=== PATIENT | female | born 1990 | race Caucasian/White ===

== ENCOUNTER 2020-12-01 08:34 | Inpatient (IN) ==
--- NOTE | 2020-11-20 10:05 | Anesthesiology Consultation ---
Date of Service November 20, 2020 Assessment & Plan (1) Encounter for pre-operative examination: COVID Status: As of 11/20 nurse assessment, patient denies travel to endemic area, known exposure/sick contacts, or symptoms of COVID19. Preoperative COVID19 testing to [place] completed on 11[place]27 at [facility] Chart Review Chart Review: Patient NOT seen in Pre Admission Testing and energy projects lead initiated History Surgery Operation Date: 12/01/20 10:40 Proposed Procedures p Section with Bilateral Tubal Ligation - Domenica Whitaker MD Height/Weight Height: 5 ft 6 in Weight: 104.78 kg Allergies Allergy/AdvReac Type Severity Reaction Status Date / Time No Known Allergies Allergy Verified 11/30/20 08:59 Medications Home Medications Medication Instructions Recorded Confirmed Last Taken prenat.vits,selina,ybi-ahcp-lgexk 1 tab PO DAILY 07/12/20 12/01/20 11/30/20 07:00 Past Medical History Medical History History of abnormal cervical Papanicolaou smear 02/24/12 Mild cervical dysplasia, histologically confirmed RhD negative Spontaneous (~2018) Past Family History Family History Grandfather (Paternal) Diabetes Heart disease Aunt Breast cancer paternal Other No family history of adverse response to anesthesia Past Surgical History Surgical History H/O colposcopy with cervical biopsy 06/11/12 History of section x2 Social History Smoking Status: Never smoker Do You Dip or Chew Tobacco: No Hx Alcohol Use: No Hx Substance Use: No Physical Exam Vital Signs Last Vital Signs Temp 36.7 C 12/01/20 08:44 Pulse 77 12/01/20 08:44 Resp 20 12/01/20 08:44 BP 118/81 12/01/20 08:44 Testing Laboratory Results 12/01/20 09:09 Blood Type A Negative 12/01/20 09:05 Antibody Screen NEGATIVE 12/01/20 09:05
[~2020-12-01 08:34] MED LIST: CITRIC ACID/SODIUM CITRATE 15 ML UDC PO SCH; LACTATED RINGER'S 1,000 ML IV SCH; ceFAZolin 3,000 MG in DEXTROSE 5% 50 ML IV SCH
[2020-12-01 09:17] LABS: Basophils # (auto) 0.01 K/uL (0-0.2); Basophils % (auto) 0.1 %; Eosinophils # (auto) 0.03 K/uL (0-0.5); Eosinophils % (auto) 0.4 %; Hematocrit (blood only) 31.9 % (37-47); Hemoglobin 10.4 g/dL (12.0-16.0); Immature Granulocytes # (auto) 0.01 K/uL (0.00-0.02); Immature Granulocytes % (auto) 0.1 %; Lymphocytes # (auto) 1.44 K/uL (1.2-3.4); Lymphocytes % (auto) 19.8 %; Mean Corpuscular Hemoglobin 27.6 pg (25-34); Mean Corpuscular Hgb Conc 32.6 g/dL (32-36); Mean Corpuscular Volume 84.6 fL (80-100); Mean Platelet Volume 10.3 fL (7.4-10.4); Monocytes # (auto) 0.64 K/uL (0.11-0.59); Monocytes % (auto) 8.8 %; Neutrophils # (auto) 5.15 K/uL (1.4-6.5); Neutrophils % (auto) 70.8 %; Platelet Count 287 K/uL (130-400); RDW Coefficient of Variation 15.4 % (11.5-14.5); RDW Standard Deviation 47.5 fL (36.4-46.3); Red Blood Count 3.77 M/uL (4.2-5.4); White Blood Count 7.28 K/uL (4.8-10.8)
--- NOTE | 2020-12-01 10:27 | History & Physical Bridge Note ---
Date of Service December 01, 2020 History & Physical Bridge Note I have examined the patient, reviewed the History & Physical and in the interval since the performance of the History & Physical I have noted the following changes of clinical significance: no changes noted
[2020-12-01] MEDS ORDERED: SODIUM CHLORIDE 0.9% INJ 10 ML VIAL ONE (12:12)
[2020-12-01] MEDS ORDERED: ONDANSETRON INJ 2 MG/ML 2 ML VIAL ONE (12:12)
[2020-12-01] MEDS ORDERED: MoRPHine SULFATE PF 1 MG/ML 10 ML AMP/VIAL ONE (12:12)
[2020-12-01] MEDS ORDERED: OXYTOCIN 10 UNITS/ML VIAL ONE (12:12)
[2020-12-01] MEDS ORDERED: fentaNYL citrate 100 MCG/2 ML VIAL ONE (12:12)
[2020-12-01] MEDS ORDERED: GLYCOPYRROLATE 0.2 MG/ML VIAL ONE (14:07)
[2020-12-01] MEDS ORDERED: ePHEDrine sulfate 50 MG/ML AMP ONE (14:08)
[2020-12-01] MEDS ORDERED: KETOROLAC 30 MG/ML VIAL ONE (14:31)
--- NOTE | 2020-12-01 15:02 | Operative Report ---
PG Post Operative Report Pre & Post Diagnosis Operation Date: 12/01/20 10:40 Pre-Op Diagnosis: Prior [place] Section;Declines ;Desires Sterilization Post-Op Diagnosis: Same; Delivery of a live male child @ 1422 (Main OR 3) I identified the patient and participated in the time-out.: Yes Procedure Operation Date: 12/01/20 10:40 Actual Procedures Low Transverse Section with Bilateral Tubal Ligation - Domenica Whitaker MD Surgeon Domenica Whitaker MD Cooper Apprentice Keyla Estimated Blood Loss 500 Findings Consistent with Post-Op Diagnosis True knot in cord Specimens Placenta, Cord blood Anesthesia Type Spinal Complications none Disposition Accompanied Patient To Recovery: Yes Disposition: L&D Description of Procedure The patient was brought to the operating room and placed on the table in the supine position with a leftward tilt, then prepped and draped in standard sterile fashion. A hard time out was taken prior to proceeding. A pfannensteil incision was created sharply and carried down to the fascia using bovie electrocautery. The fascia was nicked and then extended using garcia scissors. The edges of the fascia were grasped with Saturnino clamps and elevated, then sharply and bluntly dissected off the underlying rectus. The midline of the rectus was identified and bluntly . The peritoneum was bluntly entered, and this entry was extended using pressure from the surgeon's hands. The bladder retractor was placed and the lower uterine segment was examined and found to be well developed. A bladder flap was created and the retractor was r eplaced behind this flap to protect the bladder. A transverse lower uterine incision was then created, with final entry to the uterine cavity made in a blunt manner with the surgeon's finger. Clear amniotic fluid was encountered. The head was elevated to the incision and delivered using mild fundal pressure. A true knot was noted in the cord. The cord was doubly clamped and cut, then the vigorous infant was taken to the warmer for chocolate molder care. The placenta was manually extracted, then the uterus was gently exteriorized from the maternal abdomen. The cavity was cleared of clot and debris using a dry lap sponge. The angles of the incision were identified with allis clamps, and the hysterotomy was then repaired in running locked fashion using 0-vicryl suture, followed by a second imbricating layer. The tubes and ovaries were examined and found to be normal bilaterally. Verbal consent for tubal sterilization was confirmed, and then tubal ligation was performed on the L and then the R tube via Harika method. The tube was elevated with a Olga, a knuckle of tube was isolated via double suture-ligation, then the knuckle was excised sharply with an and the stumps were checked for hemostasis. The posterior gutter was irrigated and cleared of clot and debris. The uterus was then gently re-internalized to the abdomen. Lateral gutters were cleared of clot and debris using a damp lap sponge, the tubal stumps were examined to ensure the sutures remained in place and hemostatic, and a final exam of the hysterotomy revealed good hemostasis. The rectus muscles were allowed to reapproximate naturally. The angle of the fascia was grasped with a Saturnino clamp and the fascia was then repaired in running non-locked fashion with 1- vicryl suture. At the completion of repair, the fascia was examined and found to be free of any defect. The subcutaneous tissue was copiously irrigated and then reapproximated using 3-0 chromic. The skin was then closed using 4-0 monocryl in a running subcuticular fashion and a dermabond dressing was applied. The dan was noted to be draining clear yellow urine as the patient was transferred back to her recovery room. I attest to the content of the Intraoperative Record and any orders documented therein. Any exceptions are noted below.
[2020-12-01] MEDS ORDERED: NALOXONE HCL 0.08 MG in SYRINGE 1.8 ML IV PRN (15:59)
[2020-12-01] MEDS ORDERED: NALOXONE HCL 0.4 MG/1 ML VIAL/CARP IV PRN (15:59)
[2020-12-01] MEDS ORDERED: MoRPHine SULFATE PF 1 MG/ML 10 ML AMP/VIAL INT SPINAL ONE (15:59)
[2020-12-01] MEDS ORDERED: HYDROmorphone INJ 0.5 MG/0.5 ML SYR IV PRN (15:59)
[2020-12-01] MEDS ORDERED: LACTATED RINGER'S 500 ML IV PRN (15:59)
[2020-12-01] MEDS ORDERED: PROMETHAZINE HCL 25 MG in SODIUM CHLORIDE 0.9% 50 ML IV PRN (15:59)
[2020-12-01] MEDS ORDERED: diphenhydrAMINE 50 MG/ML VIAL IV PRN (15:59)
[2020-12-01] MEDS ORDERED: ONDANSETRON INJ 2 MG/ML 2 ML VIAL IV PRN (15:59)
[2020-12-01] MEDS ORDERED: ACETAMINOPHEN 1000 MG/100 ML IV IV PRN (15:59)
[2020-12-01] MEDS ORDERED: KETOROLAC 30 MG/ML VIAL IV PRN (15:59)
[2020-12-01] MEDS ORDERED: ePHEDrine sulfate 50 MG/ML AMP IV PRN (15:59)
[2020-12-01] MEDS ORDERED: NALOXONE HCL 1 MG in SODIUM CHLORIDE 0.9% 1000ML 1,000 ML IV PRN (15:59)
--- NOTE | 2020-12-01 15:59 | Anesthesiology Progress Note ---
Date of Service December 01, 2020 Anesthesia Post Procedure Vital Signs Vital Signs: Temp Pulse Resp BP Pulse Ox 12/01/20 15:55 72 110/63 97 12/01/20 15:53 66 114/63 12/01/20 15:50 70 97 12/01/20 15:47 77 94 12/01/20 15:45 82 97 12/01/20 15:40 61 96 12/01/20 15:36 101 H 89/48 L 12/01/20 15:35 67 93 12/01/20 15:30 67 96 12/01/20 15:29 77 94 12/01/20 15:25 68 133/76 98 12/01/20 15:20 58 L 97 12/01/20 15:15 67 126/66 98 12/01/20 11:21 36.7 C 63 20 129/76 12/01/20 08:44 36.7 C 77 20 118/81 Transfer of Care Handoff Completed per policy Notes Mental Status: alert / awake / arousable and participated in evaluation Nausea / Vomiting: adequately controlled Pain: adequately controlled Airway Patency, RR, SpO2: stable & adequate BP & HR: stable & adequate Hydration State: stable & adequate Neuraxial Anesthesia: was administered and sensory block is resolving Anesthetic Complications: no major complications apparent and Pt Satisfied with anesthetic care
[2020-12-01] MEDS ORDERED: NO NARCOTICS OR SEDATIVES SCH (16:00)
[2020-12-01] MEDS ORDERED: SODIUM CHLORIDE 0.9% 1000ML 1,000 ML IV SCH (16:00)
[2020-12-01] MEDS ORDERED: HYDROCORTISONE ACETATE 25 MG SUPP PR PRN (16:56)
[2020-12-01] MEDS ORDERED: MAGNESIUM HYDROXIDE SUSP 30 ML UDC PO PRN (16:56)
[2020-12-01] MEDS ORDERED: SENNA 8.6 MG TAB PO PRN (16:56)
[2020-12-01] MEDS ORDERED: BENZOCAINE 20% AER SPR 82.5 GM CAN EXT PRN (16:56)
[2020-12-01] MEDS ORDERED: LACTATED RINGER'S 1,000 ML IV SCH (16:56)
[2020-12-01] MEDS ORDERED: SUPERCREAM 0.870% 15 GM JAR EXT PRN (16:56)
[2020-12-01] MEDS ORDERED: DIPHTHERIA/TETANUS/PERTUSSIS 0.5 ML SYR/VIAL IM ONE (16:56)
[2020-12-01] MEDS ORDERED: OXYTOCIN 20 UNITS in LACTATED RINGER'S 1,000 ML IV SCH (17:15)
[2020-12-01] MEDS: SIMETHICONE 80 MG CHEW PO SCH ×2 (19:50→20:37)
[2020-12-01] MEDS: DOCUSATE SODIUM 100 MG CAP PO SCH (20:37)
[2020-12-01] MEDS ORDERED: LACTATED RINGER'S 500 ML IV ONE (23:09)
--- NOTE | 2020-12-02 06:23 | Obstetrical Progress Note ---
Date of Service <Dharmesh Alfaro MD - Last Filed: 12/02/20 07:26> December 02, 2020 Assessment & Plan <Dharmesh Alfaro MD - Last Filed: 12/02/20 07:26> (1) state: 30 y/o s/p rLTCS w/ BTL at 39w2d and is POD1. No complications during C/S. A neg. RI. GBS neg. Baby os O neg. Rhogam not indicated . - vitals reviewed at 0630 and are stable - Hb 10.4->9.5. Stable. Will monitor clinically. - . pain controlled. - plan for today: ambulate, remove dan, advance diet, and transition to PO pain medications - continue routine care Subjective <Dharmesh Alfaro MD - Last Filed: 12/02/20 07:26> Voiding: dan catheter in place Passing Gas:: Yes (no bm) Diet Tolerance:: clear liquids (tolerating crackers) Lochia:: Small Feeding Type:: breast feeding (no issues. ) Current Pain Level(1-10): 0 Doing well. No pain at the moment. Review of Systems Denies fever, chills, sweats Denies shortness of breath, chest pain, palpitations. Denies breast pain. Denies dysuria. Denies headache or changes in vision. Denies nausea/vomiting. Denies numbness, tingling, weakness. Denies calf pain. No mood problems. Physical Exam <Dharmesh Alfaro MD - Last Filed: 12/02/20 07:26> General: Alert, oriented. No acute distress. Cardiac: Regular rate and rhythm, no murmurs/rubs/gallops. Respiratory: Clear to auscultation bilaterally, no wheezes/rales/rhonchi. No respiratory distress. Abdomen: , soft, very mild appropriately tender. LTCS incision is nonerythematous and not draining. Dermabond appears slightly wet. Uterus: See attending note for fundus exam. Lower Extremities: No lower extremity edema or swelling. No deep calf pain. Shira's negative bilaterally. Results & Data ([facility]) <Dharmesh Alfaro MD - Last Filed: 12/02/20 07:26> Vital Signs (Past 12 Hours) Vital Signs Temp Pulse Resp BP Pulse Ox 12/02/20 05:30 16 97 02/27/21 04:30 16 98 12/02/20 03:35 36.7 C 77 16 137/87 97 12/02/20 02:30 16 97 12/02/20 01:30 16 97 12/02/20 00:00 36.5 C 61 17 122/80 99 12/01/20 23:30 16 98 12/01/20 22:30 18 98 12/01/20 21:30 16 98 12/01/20 21:20 36.3 C L 65 16 114/78 98 12/01/20 20:30 18 97 12/01/20 19:30 16 100 12/01/20 18:40 36.6 C 12/01/20 18:30 16 98 12/01/20 18:20 36.4 C L Medications Administered <Jeanine Ramires MD - Last Filed: 12/02/20 07:30> Co-Signing Physician Notes Resident Physician Supervision Note: I interviewed and examined the patient. Discussed with Dr. Alfaro and agree with findings and plan as documented in the note. Any exceptions or clarifications are listed here: POD1 s/p rLTCS/BTL. Doing well, had issues w/ nausea overnight and low uOP, both resolved. Feeling much better. VSS, exam benign, fundus firm 1cm below umbilicus, NT. Incision c/d/i. For dan removal today, routine pp care Documented By: Jeanine Ramires MD
[2020-12-02 06:38] LABS: Basophils # (auto) 0.01 K/uL (0-0.2); Basophils % (auto) 0.1 %; Eosinophils # (auto) 0.01 K/uL (0-0.5); Eosinophils % (auto) 0.1 %; Hematocrit (blood only) 29.7 % (37-47); Hemoglobin 9.5 g/dL (12.0-16.0); Immature Granulocytes # (auto) 0.03 K/uL (0.00-0.02); Immature Granulocytes % (auto) 0.2 %; Lymphocytes # (auto) 1.37 K/uL (1.2-3.4); Lymphocytes % (auto) 11.2 %; Mean Corpuscular Hemoglobin 27.5 pg (25-34); Mean Corpuscular Volume 85.8 fL (80-100); Mean Platelet Volume 10.1 fL (7.4-10.4); Monocytes # (auto) 1.14 K/uL (0.11-0.59); Monocytes % (auto) 9.3 %; Neutrophils # (auto) 9.65 K/uL (1.4-6.5); Neutrophils % (auto) 79.1 %; Platelet Count 266 K/uL (130-400); RDW Coefficient of Variation 15.6 % (11.5-14.5); RDW Standard Deviation 48.8 fL (36.4-46.3); Red Blood Count 3.46 M/uL (4.2-5.4); White Blood Count 12.21 K/uL (4.8-10.8)
[2020-12-02] MEDS: FERROUS SULFATE 325 MG TAB PO SCH (08:59)
[2020-12-02] MEDS: DOCUSATE SODIUM 100 MG CAP PO SCH ×2 (08:59→20:57)
[2020-12-02] MEDS: SIMETHICONE 80 MG CHEW PO SCH ×3 (08:59→20:57)
[2020-12-02] MEDS: PRENATAL VITAMIN 1 TAB PO SCH (08:59)
[2020-12-02] MEDS ORDERED: DC INTRASPINAL MORPHINE ONE (10:00)
[2020-12-02] MEDS ORDERED: KETOROLAC 30 MG/ML VIAL IV PRN (10:01)
[2020-12-02] MEDS ORDERED: diphenhydrAMINE 50 MG/ML VIAL IV PRN (10:01)
[2020-12-02] MEDS ORDERED: diphenhydrAMINE Capsule 25 MG CAP PO PRN (10:01)
[2020-12-02] MEDS ORDERED: PROMETHAZINE HCL 25 MG in SODIUM CHLORIDE 0.9% 50 ML IV PRN (10:01)
[2020-12-02] MEDS ORDERED: ONDANSETRON INJ 2 MG/ML 2 ML VIAL IV PRN (10:01)
[2020-12-02] MEDS: IBUPROFEN 600 MG TAB PO PRN ×2 (17:10→20:56)
[2020-12-02] MEDS ORDERED: bisacodyL 5 MG TABEC PO SCH (20:00)
[2020-12-03] MEDS: IBUPROFEN 600 MG TAB PO PRN ×2 (04:37→11:41)
[2020-12-03] MEDS: oxyCODONE/ACETAMINOPHEN 5mg/325mg TAB PO PRN ×2 (04:37→11:41)
[2020-12-03 06:37] LABS: Hemoglobin 8.8 g/dL (12.0-16.0)
[2020-12-03] MEDS: SIMETHICONE 80 MG CHEW PO SCH (08:43)
[2020-12-03] MEDS: PRENATAL VITAMIN 1 TAB PO SCH (08:43)
[2020-12-03] MEDS: FERROUS SULFATE 325 MG TAB PO SCH (08:43)
[2020-12-03] MEDS: DOCUSATE SODIUM 100 MG CAP PO SCH (08:43)
--- NOTE | 2020-12-03 09:07 | Obstetrical Progress Note ---
Date of Service December 03, 2020 Assessment & Plan (1) state: Post- day 2, patient recovering well and eager for D/C home, instructions reviewed today. Subjective Ambulation: ambulating normally Voiding: no voiding problems Passing Gas:: Yes Diet Tolerance:: regular diet Lochia:: Small Feeding Type:: breast feeding Physical Exam Constitutional WD/WN, vitals as above Eyes PERRL, conjunctivae normal, anicteric sclerae Neck normal visual inspection Respiratory normal respiratory effort and able to speak in complete sentences; no respiratory distress and no labored breathing Cardiovascular Rate/Rhythm: regular rate and regular rhythm Extremities: no edema Chest (Breasts) Chest: normal inspection of chest Gastrointestinal (Abdomen) Inspection/Auscultation: abdomen normal to inspection and + abdominal surgical incision (c/d/i) Soft, postgravid Psychiatric A+Ox3, euthymic affect Genitourinary OB Exam Abdomen: + fundal height Fundus: + firm and + relation to umbilicus (fundus just below umbilicus); not tender Results & Data ([facility]) Vital Signs (Past 12 Hours) Vital Signs Temp Pulse Resp BP Pulse Ox 12/03/20 07:35 97.7 F 71 20 118/76 97 12/03/20 01:43 97.7 F 71 16 128/76 97
[2020-12-03] MEDS ORDERED: bisacodyL 10 MG SUPP PR PRN (14:56)
--- NOTE | 2020-12-05 08:07 | Discharge Summary ---
Date of Service December 05, 2020 Discharge Data Consultations 12/01/20 08:50 Consult Anesthesiology Stat Procedures Performed Operation Date: 12/01/20 10:40 Actual Procedures p Section with Bilateral Tubal Ligation - Domenica Whitaker MD Hospital Course (1) Previous delivery affecting , antepartum: Patient underwent uncomplicated RCS and BTL. She had an uncomplicated postop recovery and was d'c home on POD#2 at her request. Percocet #10 tabs were provided. Planned 6wk f/u in office per usual. Coding Level of Care Code None Diagnoses Previous delivery affecting , antepartum O34.219
== END 2020-12-03 12:15 | disposition home or self-care (01) ==
LOC: 4S1 08:34 → EDSTATUS 09:00 → 4S2 18:13